=== PATIENT | male | born 1970 | race African-American/Black ===

== ENCOUNTER 2017-02-12 05:24 | Emergency (ER) | payer MEDICAID ==
[~2017-02-12] VITALS: Ht 175.3 cm; Wt 118.0 kg
[2017-02-12 05:26] VITALS: BP 194/137
== END 2017-02-12 10:11 | disposition left against medical advice (07) ==
LOC: ER 08:56
DX: M54.5 Low back pain (principal); Z53.21 Procedure and treatment not carried out due to patient leaving prior to being seen by health care provider